=== PATIENT | male | born 1995 | race Caucasian/White ===

== ENCOUNTER 2022-06-08 08:44 | Outpatient (CLI) | payer MEDICAID, SELFPAY ==
[2022-06-08 12:55] LABS: Hemoglobin A1C 5.2 % (<5.7)
[2022-06-08 12:57] LABS: Calculated LDL 149 mg/dL (<100); Cholesterol 234 mg/dL (<200); HDL Cholesterol 54 mg/dL (40-60); Triglyceride 155 mg/dL (<150)
== END 2022-06-08 08:45 | disposition home or self-care (01) ==
LOC: LOS 08:44
PROVIDERS: PCP Family Medicine; Referring Provider Family Medicine; Visit Provider Family Medicine
DX: E78.5 Hyperlipidemia, unspecified (principal); R73.9 Hyperglycemia, unspecified
CPT/HCPCS: 36415; 80061; 83036